=== PATIENT | male | born 1960 | race Caucasian/White ===

== ENCOUNTER 2019-08-20 16:59 | Emergency (ER) | payer SELFPAY ==
--- NOTE | 2019-08-20 18:46 | ERPHSYRPT ---
- History of Present Illness Time Seen by Provider: 08/20/19 17:45 Source: patient Exam Limitations: no limitations Patient Subjective Stated Complaint: pt fell on ice today, hitting left elbow and shoulder on a step. has strong radial pulse, Triage Nursing Assessment: pt walke in,skin w/d/p, resp easy, skin w/d/p. has limited movement of left arm, co pain to elbow and shoulder, no bruising noted Physician History: Patient slipped and hit the back and side of his left shoulder on cement. He did not hit his head or lose consciousness. Patient has extreme pain to the left shoulder with any type of movement. Occurred: this morning Method of Injury: direct blow, fell Quality: constant Severity of Pain-Max: severe Severity of Pain-Current: severe Extremities Pain Location: shoulder: left Modifying Factors: Improves With: immobilization. Worsens With: movement Associated Symptoms: No back pain, No chills, No chest discomfort, No chest pain , No dyspnea, No fever, No jaw pain, No nausea, No neck pain, No sweating, No short of breath, No vomiting Allergies/Adverse Reactions: No Known Drug Allergies Allergy (Unverified 08/20/19 17:20) Hx Influenza Vaccination/Date Given: No Hx Pneumococcal Vaccination/Date Given: No Immunizations Up to Date: Yes - Review of Systems Constitutional: No Fever, No Chills Eyes: No Eye Pain, No Eye Redness, No Vision Changes Ears, Nose, & Throat: No Ear Pain, No Nose Pain, No Nose Congestion, No Mouth Swelling, No Loose Teeth, No Throat Pain, No Painful Swallowing Respiratory: No Cough, No Dyspnea Cardiac: No Chest Pain, No Edema, No Syncope Abdominal/Gastrointestinal: No Abdominal Pain, No Nausea, No Vomiting, No Diarrhea Genitourinary Symptoms: No Dysuria Musculoskeletal: No Back Pain, No Neck Pain Skin: No Rash Neurological: No Dizziness, No Focal Weakness, No Headache, No Parasthesia, No Sensory Changes Psychological: No Symptoms Endocrine: No Symptoms, No Excessive Sweating Hematologic/Lymphatic: No Easy Bleeding, No Easy Bruising All Other Systems: Reviewed and Negative - Past Medical History Pertinent Past Medical History: No - Past Surgical History Past Surgical History: No - Social History Smoking Status: Never smoker Exposure to second hand smoke: No Drug Use: none Patient Lives Alone: Yes - Nursing Vital Signs Nursing Vital Signs: Initial Vital Signs Temperature 97.2 F 08/20/19 17:12 Pulse Rate 77 08/20/19 17:12 Respiratory Rate 16 08/20/19 17:12 Blood Pressure 149/91 08/20/19 17:12 O2 Sat by Pulse Oximetry 98 08/20/19 17:12 Pain Scale Pain Intensity 5 - Physical Exam General Appearance: no apparent distress, alert Eyes, Ears, Nose, Throat Exam: normal ENT inspection, pharynx normal, moist mucous membranes Neck Exam: non-tender, supple Cardiovascular/Respiratory Exam: chest non-tender, normal breath sounds, regular rate/rhythm, heart sounds normal, no JVD, no M/R/G, no respiratory distress, No rib tenderness Abdominal Exam: non-tender, No guarding Back Exam: normal inspection, No CVA tenderness, No vertebral tenderness, No decreased range of motion Shoulder Exam: normal inspection, bone tenderness, limited ROM, pain (left shoulder only) Elbow/Forearm Exam: normal inspection, no evidence of injury (right shoulder only), normal ROM (right shoulder only), bone tenderness (left shoulder only), pain (left only) Wrist Exam: normal inspection, non-tender, no evidence of injury, normal ROM, No bone tenderness, No pain Hand Exam: normal inspection, non-tender, no evidence of injury, normal ROM, No bone tenderness, No deformity DTR - Upper Extremity Exam: bicep (R): 2+, bicep (L): 2+ Neuro/Tendon Exam: normal sensation, normal motor functions, normal tendon functions Mental Status Exam: alert, oriented x 3, cooperative Skin Exam: normal color, warm, dry, No jaundice, No abrasion, No ecchymosis, No laceration SpO2 Interpretation: normal SpO2: 98 O2 Delivery: Room Air - Course Nursing assessment & vital signs reviewed: Yes - Radiology Exams Left Elbow X-ray Interpretation: Interpreted by me, Reviewed by me, Negative, No Fracture, Nml Alignment, Nml Soft Tissues Left Shoulder X-ray Interpretation: Interpreted by me, Reviewed by me, Negative, No Fracture, Nml Alignment, Nml Soft Tissues - CT Exams Left Upper Extremity CT Interpretation: No Fracture, No Subluxation, Other (per Radiologist Interpretation: negative for fractures or dislocations) Ordered Tests: Active Orders 24 hr Category Date Time Status ELBOW (MINIMUM 3 VIEWS) Stat Exams 08/20/19 17:49 Taken SHOULDER Stat Exams 08/20/19 17:42 Taken UPPER EXTREMITY W/O CONTRAST [CT] Stat Exams 08/20/19 18:45 Taken - Progress Progress: unchanged Progress Note: 08/20/19 18:45 Patient still has significant pain with movement of left shoulder. Patient has pain to posterior scapula. Patient will have a CT of Shoulder performed. 08/20/19 20:15 Patient beginning to be able to move left shoulder more. Neurovascularly intact distal to the injury as both hands have equal function. Counseled pt/family regarding: diagnosis, need for follow-up, rad results - Departure Departure Disposition: Home Clinical Impression: Elevated blood pressure reading without diagnosis of hypertension, Rotator cuff syndrome of left shoulder Left shoulder pain Qualifiers: Chronicity: acute Qualified Code(s): M25.512 - Pain in left shoulder Left elbow contusion Qualifiers: Encounter type: initial encounter Qualified Code(s): S50.02XA - Contusion of left elbow, initial encounter Condition: Good Critical Care Time: No Referrals: DOCTOR,NO FAMILY [Primary Care Provider] - FLORES SUTHERLAND MD [ACTIVE STAFF] - [facility] M-F [phone] Instructions: Contusion (DC), Rotator Cuff Injury (DC), Shoulder Tendinopathy ( DC), Burners or Stingers (DC), Shoulder Sprain (DC) Additional Instructions: Your x-rays and CT scan of your left shoulder were negative for fractures or dislocations on 08/20/2019. Follow-up with primary care or the orthopedic clinic on to continue evaluation and management of your shoulder as you may have caused damage the rotator cuff that helps move your shoulder or the nerves that help move that shoulder, the brachial plexus. An MRI can show both of those much better than x-rays or a CT scan. Return immediately back to the emergency department if any numbness or tingling or loss of strength in the hands bilaterally, discoloration or swelling to the upper extremities or your hands or any other concerning signs or symptoms that were not present at today' s emergency department visit for immediate reevaluation in the emergency department. Prescriptions: Etodolac 400 mg [Lodine 400 mg] 400 mg PO BID PRN PRN #20 tablet PRN Reason: Pain
[2019-08-20 20:19] VITALS: BP 158/99; PULSE 64
[2019-08-20 20:25] VITALS: O2SAT 98
--- NOTE | 2019-08-21 08:38 | XRAY ---
Indication: Pain following fall. Comparison: None 3 views of the left elbow obtained. No bony, articular, or soft tissue abnormalities.
--- NOTE | 2019-08-21 08:47 | XRAY ---
Indication: Pain following fall. Comparison: None 3 views of the left shoulder demonstrates minimal AC degenerative arthropathy with tiny inferior spur. Central scapula demonstrates short segment of curvilinear radiolucency with sclerotic margins favoring nutrient foramen. No other bony, articular, or soft tissue abnormalities.
--- NOTE | 2019-08-21 08:55 | XRAY ---
Indication: Left shoulder pain following fall. Multiple contiguous axial images obtained through the left shoulder. Sagittal and coronal reformatted images obtained. Comparison: None Central body of the scapula demonstrate prominent nutrient foramen. No acute fracture, suspicious bony lesions, or radiopaque foreign body. Shoulder joint intact without large effusion. AC joint demonstrates mild degenerative hypertrophy. Visualized thoracic spine demonstrates mild multilevel degenerative spondylosis and tiny Schmorl nodes. Visualized noncontrasted soft tissues unremarkable. Visualized left lung demonstrates minimal dependent atelectasis. Impression: 1. Negative acute fracture/dislocation. 2. Incidental mild AC degenerative arthropathy and mild multilevel degenerative spondylosis. CTDI 71.95
== END 2019-08-20 20:32 | disposition home or self-care (01) ==
LOC: ED 16:59
DX: S50.02XA Contusion of left elbow, initial encounter (principal); S40.012A Contusion of left shoulder, initial encounter; M25.512 Pain in left shoulder; R03.0 Elevated blood-pressure reading, without diagnosis of hypertension; M75.102 Unspecified rotator cuff tear or rupture of left shoulder, not specified as traumatic; W00.0XXA Fall on same level due to ice and snow, initial encounter
CPT/HCPCS: 73030; 73080; 73200; 99284

== ENCOUNTER 2021-08-01 05:56 | Day surgery (SDC) | payer BC ==
[2021-08-01] MEDS ORDERED: Lactated Ringers 1,000 ML IV SCH (06:30)
[2021-08-01] MEDS ORDERED: DIPRIVAN 200 MG/20 ML IV ONE (08:21)
[2021-08-01] MEDS ORDERED: Versed 2 MG/2 ML Injection ONE (08:21)
[2021-08-01 09:36] VITALS: BP 161/88; PULSE 60; O2SAT 99
--- NOTE | 2021-08-01 10:23 | OP ---
SURGERY DATE/TIME: 08/01/2021 0821 PREOPERATIVE DIAGNOSIS: Screening exam. POSTOPERATIVE DIAGNOSIS: Rectal polyps. PROCEDURE: Colonoscopy with cold forceps biopsy. SURGEON: Dr. Loera. ANESTHESIA: MAC. Medications given by anesthesia department. HISTORY: The patient is a 61-year-old white male presenting for screening colonoscopy. The patient was appraised of the risks of the procedure including the risk of perforation, phlebitis, untoward reaction to medication, bleeding and missed lesions. The patient verbalized his understanding and desired to have the procedure performed. DESCRIPTION OF PROCEDURE: The patient was placed in left lateral decubitus position, given the medications by the anesthesia department. He had continuous pulse oximetry, ECG monitoring, intermittent blood pressure monitoring and tidal CO2 monitoring during the examination. Digital rectal examination was performed and revealed normal anal sphincter tone, no masses and normal prostate. The flexible Olympus pediatric colonoscope was used to intubate the rectum. A view of the colon was developed sequentially to the cecum. Upon insertion and withdrawal, including a retroflex view in the rectum were noted small polyps in the rectum. They were biopsied to determine whether they were hyperplastic or tubular adenomas. No other mucosal lesions were encountered. The scope was removed from the patient who tolerated the procedure well and was sent back to OP recovery in good condition. The prep was noted to be good.
== END 2021-08-01 09:40 | disposition home or self-care (01) ==
LOC: SDC 05:56
PROVIDERS: ATTEND Family Medicine
DX: Z12.11 Encounter for screening for malignant neoplasm of colon (principal); K62.1 Rectal polyp
CPT/HCPCS: 88305; J2250; J2704